=== PATIENT | female | born 1965 | race Asian ===

== ENCOUNTER 2016-03-30 15:54 | Outpatient (CLI) | payer OTHER | END 2016-03-30 15:55 | disposition home or self-care (01) | DX: N81.4 Uterovaginal prolapse, unspecified (principal) ==

== ENCOUNTER 2016-05-28 12:25 | Outpatient (CLI) | payer OTHER | END 2016-05-28 12:26 | disposition home or self-care (01) | DX: Z01.812 Encounter for preprocedural laboratory examination (principal); N81.3 Complete uterovaginal prolapse ==

== ENCOUNTER 2016-05-30 07:36 | Inpatient (IN) | payer OTHER ==
[~2016-05-30 07:36] MED LIST: ceFAZolin 1 GM VIAL ONE
[2016-05-30] MEDS ORDERED: CELECOXIB 100 MG CAPSULE PO ONE (07:45)
[2016-05-30] MEDS ORDERED: LACTATED RINGERS 1,000 ML IV ONE ×3 (07:50→13:14)
[2016-05-30] MEDS ORDERED: LEVOTHYROXINE 100 MCG TABLET PO SCH (08:30)
[2016-05-30] MEDS ORDERED: GENTAMICIN 40 MG/1 ML 2 ML MDV ONE (08:47)
[2016-05-30] MEDS ORDERED: GLYCOPYRROLATE 1 MG/5 ML VIAL IVP ONE (09:00)
[2016-05-30] MEDS ORDERED: PROPOFOL 200 MG/20 ML VIAL IVP ONE (09:00)
[2016-05-30] MEDS ORDERED: SODIUM CHLORIDE 0.9% IV SCH (09:00)
[2016-05-30] MEDS ORDERED: ROCURONIUM 50 MG/5 ML VIAL IVP ONE (09:00)
[2016-05-30] MEDS ORDERED: ONDANSETRON 4 MG/2 ML VIAL IVP ONE (09:00)
[2016-05-30] MEDS ORDERED: LIDOCAINE 1% 50 ML MDV SUBQ ONE (09:00)
[2016-05-30] MEDS ORDERED: NEOSTIGMINE 1 MG/1 ML 10 ML MDV IVP ONE (09:00)
[2016-05-30] MEDS ORDERED: KETOROLAC 30 MG/ML VIAL IVP ONE (09:00)
[2016-05-30] MEDS ORDERED: ACETAMINOPHEN 1,000 MG/100 ML VIAL IV ONE (09:00)
[2016-05-30] MEDS ORDERED: DEXAMETHASONE 4 MG/ML VIAL IVP ONE (09:00)
[2016-05-30] MEDS ORDERED: fentaNYL 250 MCG/5 ML VIAL IVP ONE (09:00)
[2016-05-30] MEDS ORDERED: ceFAZolin 1 GM VIAL IV ONE (09:00)
[2016-05-30] MEDS ORDERED: GENTAMICIN IV SCH (09:00)
[2016-05-30] MEDS ORDERED: MIDAZOLAM 2 MG/2 ML VIAL IVP ONE (09:00)
[2016-05-30] MEDS ORDERED: BUPIVACAINE 0.25%-EPI 1:200000 PF 30 ML VIAL SUBQ ONE ×2 (09:21)
[2016-05-30] MEDS ORDERED: ACETAMINOPHEN 1,000 MG/100 ML 100 ML IV ONE (13:21)
[2016-05-30] MEDS ORDERED: GENTAMICIN 40 MG/1 ML 2 ML MDV IL ONE (13:22)
[2016-05-30] MEDS: ACETAMINOPHEN 500 MG TABLET PO SCH ×3 (13:28→16:06)
[2016-05-30] MEDS ORDERED: MEPERIDINE 50 MG/ML SYRINGE ONE (13:41)
[2016-05-30] MEDS ORDERED: HYDROmorphone 1 MG/ML SYRINGE ONE (13:50)
[2016-05-30] MEDS: LACTATED RINGERS 1,000 ML IV SCH ×3 (14:45→21:30)
[2016-05-30] MEDS: oxyCODONE 5 MG TABLET PO SCH ×4 (14:50→21:29)
[2016-05-30] MEDS: CELECOXIB 100 MG CAPSULE PO SCH ×2 (14:50→21:30)
[2016-05-30] MEDS: DOCUSATE SODIUM 100 MG CAPSULE PO SCH ×2 (14:50→21:29)
[2016-05-30] MEDS ORDERED: HYDROmorphone 1 MG/ML SYRINGE IVP PRN (16:57)
[2016-05-30] MEDS: LORazepam 2 MG/ML SYRINGE IVP PRN (18:02)
[2016-05-31] MEDS: ACETAMINOPHEN 500 MG TABLET PO SCH ×3 (01:07→17:54)
[2016-05-31] MEDS: oxyCODONE 5 MG TABLET PO SCH ×6 (01:08→20:59)
[2016-05-31] MEDS: LACTATED RINGERS 1,000 ML IV SCH (04:22)
[2016-05-31] MEDS ORDERED: IBUPROFEN 600 MG TABLET PO PRN (05:57)
[2016-05-31] MEDS ORDERED: oxyCODONE 5 MG TABLET PO SCH (06:00)
[2016-05-31] MEDS: LEVOTHYROXINE 25 MCG TABLET PO SCH (06:25)
[2016-05-31] MEDS: CELECOXIB 100 MG CAPSULE PO SCH ×2 (08:31→20:59)
[2016-05-31] MEDS: levoFLOXacin 250 MG TABLET PO SCH (08:31)
[2016-05-31] MEDS: DOCUSATE SODIUM 100 MG CAPSULE PO SCH ×2 (08:31→20:59)
[2016-05-31] MEDS: SODIUM CHLORIDE FLUSH 0.9% 10 ML SYRINGE IVP PRN ×2 (08:31→11:06)
[2016-05-31] MEDS: ONDANSETRON 4 MG/2 ML VIAL IVP PRN ×2 (11:06→16:44)
[2016-05-31] MEDS: SCOPOLAMINE PATCH TOP SCH (14:29)
[2016-05-31] MEDS: LORazepam 2 MG/ML SYRINGE IVP PRN (16:53)
[2016-05-31] MEDS ORDERED: LORazepam 0.5 MG TABLET PO PRN (19:03)
[2016-06-01] MEDS: ACETAMINOPHEN 500 MG TABLET PO SCH ×3 (00:55→17:30)
[2016-06-01] MEDS: oxyCODONE 5 MG TABLET PO SCH ×6 (00:56→20:31)
[2016-06-01] MEDS: LEVOTHYROXINE 25 MCG TABLET PO SCH (06:25)
[2016-06-01] MEDS: DOCUSATE SODIUM 100 MG CAPSULE PO SCH ×2 (09:48→20:31)
[2016-06-01] MEDS: levoFLOXacin 250 MG TABLET PO SCH (09:48)
[2016-06-01] MEDS: CELECOXIB 100 MG CAPSULE PO SCH ×2 (09:48→20:30)
[2016-06-01] MEDS: HEPARIN 5,000 UNIT/ML VIAL SUBQ SCH (20:27)
[2016-06-02] MEDS: oxyCODONE 5 MG TABLET PO SCH ×3 (00:15→08:10)
[2016-06-02] MEDS: ACETAMINOPHEN 500 MG TABLET PO SCH ×3 (00:15→17:44)
[2016-06-02] MEDS: LEVOTHYROXINE 25 MCG TABLET PO SCH (06:54)
[2016-06-02] MEDS: levoFLOXacin 250 MG TABLET PO SCH (08:09)
[2016-06-02] MEDS: DOCUSATE SODIUM 100 MG CAPSULE PO SCH ×2 (08:10→21:10)
[2016-06-02] MEDS: HEPARIN 5,000 UNIT/ML VIAL SUBQ SCH ×2 (08:11→21:10)
[2016-06-02] MEDS: CELECOXIB 100 MG CAPSULE PO SCH ×2 (08:11→21:10)
[2016-06-02] MEDS ORDERED: ALPRAZolam 0.25 MG TABLET PO PRN (09:41)
[2016-06-02] MEDS: POLYETHYLENE GLYCOL 3350 17 GM PACKET PO PRN (10:23)
[2016-06-02] MEDS: oxyCOD/ACETAMIN 5 MG/325 MG TABLET PO PRN (16:32)
[2016-06-02] MEDS: SIMETHICONE CHEW 80 MG TABLET PO PRN (17:48)
[2016-06-03] MEDS: oxyCOD/ACETAMIN 5 MG/325 MG TABLET PO PRN ×2 (00:23→14:21)
[2016-06-03] MEDS: ACETAMINOPHEN 500 MG TABLET PO SCH ×3 (00:25→18:40)
[2016-06-03] MEDS: LEVOTHYROXINE 25 MCG TABLET PO SCH (06:29)
[2016-06-03] MEDS: POLYETHYLENE GLYCOL 3350 17 GM PACKET PO PRN (09:04)
[2016-06-03] MEDS: DOCUSATE SODIUM 100 MG CAPSULE PO SCH ×2 (09:05→22:22)
[2016-06-03] MEDS: levoFLOXacin 250 MG TABLET PO SCH (09:05)
[2016-06-03] MEDS: CELECOXIB 100 MG CAPSULE PO SCH ×2 (09:06→22:25)
[2016-06-03] MEDS: SIMETHICONE CHEW 80 MG TABLET PO PRN (09:07)
[2016-06-03] MEDS: HEPARIN 5,000 UNIT/ML VIAL SUBQ SCH ×2 (09:07→22:24)
[2016-06-03] MEDS ORDERED: BISACODYL 10 MG SUPP PR ONE ×2 (12:41)
[2016-06-03] MEDS ORDERED: MAGNESIUM HYDROXIDE 2,400 MG/30 ML UDC PO ONE (12:41)
[2016-06-03] MEDS ORDERED: LACTULOSE 10 GM /15 ML UDC PO ONE (12:41)
[2016-06-03] MEDS ORDERED: MAGNESIUM CITRATE 296 ML BOTTLE PO ONE (12:41)
[2016-06-03] MEDS ORDERED: SENNA 8.6 MG TABLET PO SCH (13:00)
[2016-06-03] MEDS ORDERED: BISACODYL 10 MG SUPP PR PRN (13:18)
[2016-06-03] MEDS ORDERED: LACTULOSE 10 GM /15 ML UDC PO PRN (13:18)
[2016-06-03] MEDS ORDERED: GLYCERIN ADULT SUPP PR PRN (13:18)
[2016-06-03] MEDS ORDERED: MAGNESIUM CITRATE 296 ML BOTTLE PO PRN (13:18)
[2016-06-03] MEDS ORDERED: DOCUSATE SODIUM 250 MG CAPSULE PO PRN ×2 (13:18→22:32)
[2016-06-03] MEDS ORDERED: MAGNESIUM HYDROXIDE 2,400 MG/30 ML UDC PO PRN (13:18)
[2016-06-03] MEDS: SENNA 8.6 MG TABLET PO SCH ×2 (13:36→22:29)
[2016-06-03] MEDS: SCOPOLAMINE PATCH TOP SCH (14:22)
[2016-06-03] MEDS ORDERED: ACETAMINOPHEN 325 MG SUPP PR PRN (22:32)
[2016-06-03] MEDS ORDERED: ATORVASTATIN 10 MG TABLET PO SCH (23:00)
[2016-06-04] MEDS: ACETAMINOPHEN 500 MG TABLET PO SCH (00:32)
[2016-06-04] MEDS ORDERED: LEVOTHYROXINE 25 MCG TABLET PO SCH (07:00)
[2016-06-04] MEDS ORDERED: DOCUSATE SODIUM 250 MG CAPSULE PO SCH (09:00)
[2016-06-04] MEDS ORDERED: POLYETHYLENE GLYCOL 3350 17 GM PACKET PO SCH (09:00)
== END 2016-06-04 00:40 | disposition home or self-care (01) | DRG 743 ==
PROC: 0TSD0ZZ Reposition Urethra, Open Approach (ICD-10-PCS; 2016-05-30)
PROC: 0USG0ZZ Reposition Vagina, Open Approach (ICD-10-PCS; 2016-05-30)
PROC: 0TJB8ZZ Inspection of Bladder, Via Natural or Artificial Opening Endoscopic (ICD-10-PCS; 2016-05-30)
PROC: 0T9B30Z Drainage of Bladder with Drainage Device, Percutaneous Approach (ICD-10-PCS; 2016-05-30)
PROC: 0UT90ZZ Resection of Uterus, Open Approach (ICD-10-PCS; principal; 2016-05-30 10:00)
PROC: 0UT70ZZ Resection of Bilateral Fallopian Tubes, Open Approach (ICD-10-PCS; 2016-05-30 10:00)
DX: N81.3 Complete uterovaginal prolapse (principal); E03.9 Hypothyroidism, unspecified; K59.00 Constipation, unspecified; E78.5 Hyperlipidemia, unspecified

== ENCOUNTER 2016-06-05 16:07 | Outpatient (CLI) | payer OTHER | END 2016-06-05 16:08 | disposition home or self-care (01) | DX: G89.18 Other acute postprocedural pain (principal); N89.8 Other specified noninflammatory disorders of vagina ==

== ENCOUNTER 2016-07-09 22:16 | Emergency (ER) | payer OTHER | END 2016-07-10 00:39 | disposition home or self-care (01) | DX: R33.9 Retention of urine, unspecified (principal); R10.33 Periumbilical pain; E78.00 Pure hypercholesterolemia, unspecified; E03.9 Hypothyroidism, unspecified ==

== ENCOUNTER 2018-01-31 10:28 | Outpatient (CLI) | payer OTHER ==
--- NOTE | 2018-02-03 08:30 | Mammography Report ---
Reason: SCREENING MAMMO Procedure Date: 01/31/2018 Accession Number: [id number] / [id number] Procedure: MGN - Screening Mammo Dig Bilat CPT Code: FULL RESULT: EXAM: Screening Mammo Dig Bilat DATE: 01/31/2018 10:52 AM CLINICAL HISTORY: 52-year-old female with history of childbearing presents for screening. TECHNIQUE: Bilateral CC and MLO views were obtained. COMPARISON: 04/08/2015, 02/19/2014, 01/16/2013, 02/08/2012. FINDINGS: The breasts demonstrate extremely dense parenchyma bilaterally, limiting the sensitivity of mammography. No suspicious masses, clustered microcalcifications, or regions of architectural distortion are identified. IMPRESSION: Negative examination RECOMMENDATION: Routine annual screening unless otherwise clinically indicated. BIRADS CATEGORY 1: Negative STANDARD QUALIFYING STATEMENTS: 1. This examination was reviewed with the aid of Computer-Aided Detection (CAD). 2. A negative or benign imaging report should not delay biopsy if clinically suspicious findings are present. Consider surgical consultation if warranted. More than 5% of cancers are not identified by imaging. 3. Dense breasts may obscure an underlying neoplasm. 4. This examination was reviewed without the aid of 3D breast imaging (tomosynthesis).
== END 2018-01-31 10:29 | disposition home or self-care (01) ==
LOC: DI.N 10:28
DX: Z12.31 Encounter for screening mammogram for malignant neoplasm of breast (principal)
CPT/HCPCS: 77067

== ENCOUNTER 2019-01-23 11:04 | Outpatient (CLI) | payer OTHER ==
--- NOTE | 2019-01-23 12:36 | Mammography Report ---
Reason: ROUTINE MAMMO Procedure Date: 01/23/2019 Accession Number: [id number] / [id number] Procedure: MGN - Screening Mammo Dig Bilat CPT Code: Final Report FULL RESULT: EXAM: Screening Mammo Dig Bilat DATE: 01/23/2019 11:27 AM CLINICAL HISTORY: Routine screening. No reported personal or family history of breast cancer. TECHNIQUE: (B) - Bilateral CC and MLO views were obtained. COMPARISON: 01/31/2018 through 02/09/2014. PARENCHYMAL PATTERN: (D) - The breasts demonstrate heterogeneously dense fibroglandular parenchyma bilaterally. FINDINGS: Bilateral breasts: There are no suspicious masses, calcifications, or areas of distortion. IMPRESSION: Negative examination. BI-RADS category 1. RECOMMENDATION: (ANNUAL) - Recommend routine annual screening mammography. BI-RADS CATEGORY: (1) - Negative. STANDARD QUALIFYING STATEMENTS: 1. This examination was not reviewed with the aid of Computer-Aided Detection (CAD). 2. A negative or benign imaging report should not preclude biopsy if clinically suspicious findings are present. 3. Dense breasts may obscure an underlying neoplasm. 4. This examination was reviewed without the aid of 3D breast imaging (tomosynthesis).
== END 2019-01-23 11:05 | disposition home or self-care (01) ==
LOC: DI.N 11:04
DX: Z12.31 Encounter for screening mammogram for malignant neoplasm of breast (principal)
CPT/HCPCS: 77067

== ENCOUNTER 2020-02-12 10:59 | Outpatient (CLI) | payer OTHER ==
--- NOTE | 2020-02-15 09:47 | Mammography Report ---
BILATERAL DIGITAL SCREENING MAMMOGRAM 3D/2D: 02/12/2020 CLINICAL: Routine screening. Comparison is made to exams dated: 01/23/2019 mammogram, 01/31/2018 mammogram, 04/08/2015 mammogram, 02/19/2014 mammogram, 01/16/2013 mammogram, and 02/08/2012 mammogram - [facility]. The tissue of both breasts is heterogeneously dense. This may lower the sensitivity of mammography. No significant masses, calcifications, or other findings are seen in either breast. There has been no significant interval change. IMPRESSION: NEGATIVE There is no mammographic evidence of malignancy. A 1 year screening mammogram is recommended. This exam was interpreted at Station ID: [id number]. NOTE: For mammograms, a report in lay terms will be sent to the patient. Approximately 15% of breast malignancies will not be visualized mammographically. In the management of a palpable breast mass, a negative mammogram must not discourage biopsy of a clinically suspicious lesion. Electronically Signed By: Bryon Patricio M.D. atcinthia/starrad:02/12/2020 12:15:30 ACR BI-RADS Category 1: Negative 3341F PARENCHYMAL PATTERN: (D) - The breast(s) demonstrate(s) heterogeneously dense fibroglandular ruben allison. BI-RADS CATEGORY: (1) - 1 RECOMMENDATION: (ANNUAL) - Recommend routine annual screening mammography. [id number] 1 year screening LATERALITY: (B)
== END 2020-02-12 11:00 | disposition home or self-care (01) ==
LOC: DI.N 10:59
DX: Z12.31 Encounter for screening mammogram for malignant neoplasm of breast (principal)

== ENCOUNTER 2021-04-03 13:14 | Outpatient (CLI) | payer OTHER ==
--- NOTE | 2021-04-04 08:52 | Mammography Report ---
BILATERAL DIGITAL SCREENING MAMMOGRAM 3D/2D: 04/03/2021 CLINICAL: Routine screening. Comparison is made to exams dated: 02/12/2020 mammogram, 01/23/2019 mammogram, and 01/31/2018 mammogr am - [facility]. The tissue of both breasts is heterogeneously dense. This may low er the sensitivity of mammography. No significant masses, calcifications, or other findings are seen in either breast. There has been no significant interval change. IMPRESSION: NEGATIVE There is no mammographic evidence of malignancy. A 1 year screening mammogram is recommended. This exam was interpreted at Station ID: [id number]. NOTE: For mammograms, a report in lay terms will be sent to the patient. Approximately 15% of breast malignancies will not be visualized mammographically. In the management of a palpable breast mass, a negative mammogram must not discourage biopsy of a clinically suspicious lesion. Electronically Signed By: Emiliano Fountain M.D. ar/penrad:04/03/2021 14:11:15 ACR BI-RADS Category 1: Negative 3341F PARENCHYMAL PATTERN: (D) - The breast(s) demonstrate(s) heterogeneously dense fibroglandular ruben allison. BI-RADS CATEGORY: (1) - 1 RECOMMENDATION: (ANNUAL) - Recommend routine annual screening mammography. [id number] 1 year screening LATERALITY: (B)
== END 2021-04-03 13:15 | disposition home or self-care (01) ==
LOC: DI.N 13:14
DX: Z12.31 Encounter for screening mammogram for malignant neoplasm of breast (principal)

== ENCOUNTER 2021-09-08 10:22 | Outpatient (CLI) | payer OTHER ==
[2021-09-08 12:30] LABS: BASOPHILS # (AUTO) 0.1 10^3/uL (0.0-0.1); BASOPHILS % (AUTO) 1.1 %; EOSINOPHILS # (AUTO) 0.2 10^3/uL (0.0-0.7); EOSINOPHILS % (AUTO) 4.2 %; HCT - HEMATOCRIT 38.5 % (37.0-47.0); HGB - HEMOGLOBIN 12.9 g/dL (12.0-16.0); LYMPHOCYTES # (AUTO) 2.1 10^3/uL (1.5-3.5); LYMPHOCYTES % (AUTO) 46.2 %; MEAN CORPUSCULAR HEMOGLOBIN 29.7 pg (27.0-31.0); MEAN CORPUSCULAR HGB CONC 33.5 g/dL (32.0-36.0); MEAN CORPUSCULAR VOLUME 88.5 fL (81.0-99.0); MEAN PLATELET VOLUME 9.7 fL (7.9-10.8); MONOCYTES # (AUTO) 0.3 10^3/uL (0.0-1.0); MONOCYTES % (AUTO) 7.1 %; NEUTROPHILS # (AUTO) 1.9 10^3/uL (1.5-6.6); NEUTROPHILS % (AUTO) 41.4 %; PLT - PLATELET COUNT 227 10^3/uL (130-450); RED BLOOD COUNT 4.35 10^6/uL (4.20-5.40); WHITE BLOOD COUNT 4.5 x10^3/uL (4.8-10.8)
[2021-09-08 12:52] LABS: ALBUMIN 4.6 g/dL (3.2-5.5); ALBUMIN/GLOBULIN RATIO 1.8 (1.0-2.2); ALKALINE PHOSPHATASE 70 IU/L (42-121); ALT ALANINE AMINOTRANSFERASE 18 IU/L (10-60); AST ASPARTATE AMINOTRANSFERASE 27 IU/L (10-42); BILIRUBIN,TOTAL 0.4 mg/dL (0.2-1.0); BUN - BLOOD UREA NITROGEN 14 mg/dL (6-20); CALCIUM 9.8 mg/dL (8.5-10.3); CARBON DIOXIDE - CO2 28 mmol/L (21-32); CHLORIDE 104 mmol/L (101-111); CHOL/HDL RATIO 2.6 (<4.4); CHOLESTEROL 176 mg/dL; CREATININE 0.7 mg/dL (0.4-1.0); GFR - MDRD 88 (>89); GLUCOSE 91 mg/dL (70-100); HDL CHOLESTEROL 69 mg/dL; LDL CHOLESTEROL,CALCULATED 94 mg/dL; LDL/HDL RATIO 1.4 (<4.4); POTASSIUM 3.5 mmol/L (3.5-5.0); SODIUM 141 mmol/L (135-145); THYROID STIMULATING HORMONE 2.16 uIU/mL (0.34-5.60); TOTAL PROTEIN 7.2 g/dL (6.7-8.2); TRIGLYCERIDES 65 mg/dL; VLDL CHOLESTEROL 13 mg/dL
== END 2021-09-08 10:23 | disposition home or self-care (01) ==
LOC: LAB.N 10:22
PROVIDERS: ATTEND Physician Assistant Medical
DX: Z00.00 Encounter for general adult medical examination without abnormal findings (principal); E78.2 Mixed hyperlipidemia; E03.9 Hypothyroidism, unspecified
CPT/HCPCS: 36415; 80053; 80061; 83721; 84443; 85025

== ENCOUNTER 2022-10-10 12:53 | Outpatient (CLI) | payer OTHER ==
--- NOTE | 2022-10-11 09:19 | Mammography Report ---
BILATERAL DIGITAL SCREENING MAMMOGRAM 3D/2D: 10/10/2022 CLINICAL: Routine screening. Comparison is made to exams dated: 04/03/2021 mammogram, 02/12/2020 mammogram, 01/23/2019 mammogram, 04/02/2017 mammogram, 04/08/2015 mammogram, and 02/19/2014 mammogram - [facility]. Both breasts are extremely dense, which lowers the sensitivity of mammography (category d />75% gland ular tissue). No significant masses, calcifications, or other findings are seen in either breast. There has been no significant interval change. IMPRESSION: NEGATIVE There is no mammographic evidence of malignancy. A 1 year screening mammogram is recommended. Based on Tyrer-Cuzick model (a risk assessment model), the patient's lifetime risk is 20.2% and her 1 0 year risk is 6.0%. If a patient has an elevated risk, a more comprehensive evaluation should be con sidered and/or a referral to a genetic counselor. The [employer], [employer], and NCCN Guidelines advise the consideration of Breast MRI as an adjunct to screening mammog jason in patients whose "Lifetime risk to develop breast cancer" is 20% or higher. This exam was interpreted at Station ID: [id number]. NOTE: For mammograms, a report in lay terms will be sent to the patient. Approximately 15% of breast malignancies will not be visualized mammographically. In the management of a palpable breast mass, a negative mammogram must not discourage biopsy of a clinically suspicious lesion. Electronically Signed By: Kristine wyatt/radu:10/10/2022 16:40:30 letter sent: No_Letter ACR BI-RADS Category 1: Negative 3341F PARENCHYMAL PATTERN: (VD) - The breast(s) demonstrate(s) extremely dense parenchyma, limiting the sen sitivity of mammography. BI-RADS CATEGORY: (1) - 1 Mammogram [id number] 1 year screening LATERALITY: (B)
== END 2022-10-10 12:54 | disposition home or self-care (01) ==
LOC: DI.N 12:53
DX: Z12.31 Encounter for screening mammogram for malignant neoplasm of breast (principal)

== ENCOUNTER 2023-09-23 08:57 | Outpatient (CLI) | payer OTHER ==
[2023-09-23 11:52] LABS: BASOPHILS # (AUTO) 0.1 10^3/uL (0.0-0.1); BASOPHILS % (AUTO) 1.2 %; EOSINOPHILS # (AUTO) 0.2 10^3/uL (0.0-0.7); EOSINOPHILS % (AUTO) 3.6 %; HCT - HEMATOCRIT 35.8 % (37.0-47.0); HGB - HEMOGLOBIN 11.9 g/dL (12.0-16.0); LYMPHOCYTES % (AUTO) 47.9 %; MEAN CORPUSCULAR HEMOGLOBIN 29.5 pg (27.0-31.0); MEAN CORPUSCULAR HGB CONC 33.2 g/dL (32.0-36.0); MEAN CORPUSCULAR VOLUME 88.8 fL (81.0-99.0); MEAN PLATELET VOLUME 10.2 fL (7.9-10.8); MONOCYTES # (AUTO) 0.3 10^3/uL (0.0-1.0); MONOCYTES % (AUTO) 6.2 %; NEUTROPHILS # (AUTO) 1.7 10^3/uL (1.5-6.6); NEUTROPHILS % (AUTO) 40.9 %; PLT - PLATELET COUNT 188 10^3/uL (130-450); RED BLOOD COUNT 4.03 10^6/uL (4.20-5.40); RED CELL DISTRIBUTION WIDTH 13.9 % (12.0-15.0); WHITE BLOOD COUNT 4.2 x10^3/uL (4.8-10.8)
[2023-09-23 12:38] LABS: THYROID STIMULATING HORMONE 5.36 uIU/mL (0.34-5.60)
[2023-09-23 12:39] LABS: ALBUMIN 4.6 g/dL (3.2-5.5); ALBUMIN/GLOBULIN RATIO 1.9 (1.0-2.2); ALKALINE PHOSPHATASE 113 IU/L (42-121); ALT ALANINE AMINOTRANSFERASE 26 IU/L (10-60); AST ASPARTATE AMINOTRANSFERASE 26 IU/L (10-42); BILIRUBIN,TOTAL 0.5 mg/dL (0.2-1.0); BUN - BLOOD UREA NITROGEN 19 mg/dL (6-20); CALCIUM 9.8 mg/dL (8.5-10.3); CARBON DIOXIDE - CO2 28 mmol/L (21-32); CHLORIDE 103 mmol/L (101-111); CHOL/HDL RATIO 2.6 (<4.4); CHOLESTEROL 184 mg/dL; CREATININE 0.6 mg/dL (0.6-1.3); GFR - MDRD 104 (>89); GLUCOSE 91 mg/dL (74-104); HDL CHOLESTEROL 70 mg/dL; LDL CHOLESTEROL,CALCULATED 100 mg/dL; LDL/HDL RATIO 1.4 (<4.4); POTASSIUM 3.5 mmol/L (3.5-4.5); SODIUM 135 mmol/L (135-145); TRIGLYCERIDES 72 mg/dL; VLDL CHOLESTEROL 14 mg/dL
== END 2023-09-23 08:58 | disposition home or self-care (01) ==
LOC: LAB.N 08:57
PROVIDERS: ATTEND Physician Assistant Medical
DX: Z00.00 Encounter for general adult medical examination without abnormal findings (principal); E78.2 Mixed hyperlipidemia; E03.9 Hypothyroidism, unspecified
CPT/HCPCS: 36415; 80053; 80061; 83721; 84443; 85025

== ENCOUNTER 2023-10-21 10:07 | Outpatient (CLI) | payer OTHER ==
--- NOTE | 2023-10-22 07:59 | Mammography Report ---
BILATERAL DIGITAL SCREENING MAMMOGRAM 3D/2D: 10/21/2023 CLINICAL: Routine screening. Comparison is made to exams dated: 10/10/2022 mammogram, 04/03/2021 mammogram, 02/12/2020 mammogram, mammogram, 01/31/2018 mammogram, and 04/08/2015 mammogram - [facility]. Both breasts are extremely dense, which lowers the sensitivity of mammography (category d />75% gland ular tissue). No significant masses, calcifications, or other findings are seen in either breast. There has been no significant interval change. IMPRESSION: NEGATIVE There is no mammographic evidence of malignancy. A 1 year screening mammogram is recommended. Based on the Tyrer Cuzick model (a risk assessment model) the patient's lifetime risk is 19.9% and he r 10 year risk is 6.3%. According to the ACR, ACS, and NCCN guidelines, an annual breast MRI exam phyllis ng with mammogram is recommended if the patient's lifetime risk is 20% or greater. This exam was interpreted at Station ID: [id number]. NOTE: For mammograms, a report in lay terms will be sent to the patient. Approximately 15% of breast malignancies will not be visualized mammographically. In the management of a palpable breast mass, a negative mammogram must not discourage biopsy of a clinically suspicious lesion. Electronically Signed By: Kristine wyatt/radu:10/21/2023 12:40:53 letter sent: No_Letter ACR BI-RADS Category 1: Negative 3341F PARENCHYMAL PATTERN: (VD) - The breast(s) demonstrate(s) extremely dense parenchyma, limiting the sen sitivity of mammography. BI-RADS CATEGORY: (1) - 1 RECOMMENDATION: (ANNUAL) - Recommend routine annual screening mammography. [id number] 1 year screening LATERALITY: (B)
== END 2023-10-21 10:08 | disposition home or self-care (01) ==
LOC: DI.N 10:07
DX: Z12.31 Encounter for screening mammogram for malignant neoplasm of breast (principal); R92.343 Mammographic extreme density, bilateral breasts